=== PATIENT | female | born 1930 | race Caucasian/White ===

== ENCOUNTER 2018-05-30 00:59 | Inpatient (IN) | payer MEDICARE, OTHER ==
[2018-05-30 01:30] LABS: ADD MAN DIFF? NO
[2018-05-30 01:40] LABS: ABNORMAL IP MESSAGE 1; BASOPHIL # 0.1 10^3/ul (0.0-0.1); BASOPHILS % 0.3 % (0.0-2.0); EOSINOPHILS # 0.2 10^3/ul (0.0-0.5); EOSINOPHILS % 1.2 % (0.0-7.0); HEMATOCRIT 37.9 % (37.0-47.0); LYMPHOCYTES # 1.5 10^3/ul (0.8-2.9); LYMPHOCYTES % 9.8 % (15.0-51.0); MEAN CORPUSCULAR HEMOGLOBIN 28.4 pg (29.0-33.0); MEAN CORPUSCULAR HGB CONC 31.7 g/dl (32.0-37.0); MEAN CORPUSCULAR VOLUME 89.6 fl (82.0-101.0); MEAN PLATELET VOLUME 10.8 fl (7.4-10.4); MONOCYTE # 1.2 10^3/ul (0.3-0.9); MONOCYTES % 7.7 % (0.0-11.0); NEUTROPHIL # 11.7 10^3/ul (1.6-7.5); NEUTROPHILS % 78.9 % (39.0-77.0); PLATELET COUNT 52 10^3/UL (140-415); RED BLOOD COUNT 4.23 10^6/ul (4.20-5.40); RED CELL DISTRIBUTION WIDTH 21.8 % (11.5-14.5)
[2018-05-30 01:40] LABS: WHITE BLOOD COUNT 14.8 10^3/ul (4.8-10.8)
[2018-05-30 01:43] LABS: POSITIVE DIFF @See below
[2018-05-30 01:50] LABS: INR 1.74; PROTIME 20.7 Sec (11.9-14.9); PT RATIO 1.6
[2018-05-30 01:51] LABS: PARTIAL THROMBOPLASTIN TIME 35.3 Sec (23.0-35.0)
[2018-05-30 01:55] LABS: ALANINE AMINOTRANSFERASE 218 IU/L (13-69); ALBUMIN/GLOBULIN RATIO 0.85; ALKALINE PHOSPHATASE 354 IU/L (42-121); ANION GAP 10 (5-13); ASPARTATE AMINO TRANSFERASE 298 IU/L (15-46); BILIRUBIN,INDIRECT 1.8 mg/dl (0-1.1); BILIRUBIN,TOTAL 2.6 mg/dl (0.2-1.3); BLOOD UREA NITROGEN 26 mg/dl (7-20); CALCIUM 8.1 mg/dl (8.4-10.2); CARBON DIOXIDE 20 mmol/L (21-31); CHLORIDE 106 mmol/L (97-110); CREATININE 0.54 mg/dl (0.44-1.00); GLUCOSE 133 mg/dl (70-220); POTASSIUM 4.9 mmol/L (3.5-5.1); SODIUM 136 mmol/L (135-144); TOTAL PROTEIN 6.5 g/dl (6.1-8.1)
[2018-05-30 02:05] LABS: B-TYPE NATRIURETIC PEPTIDE 1070 PG/ML (0-450); TROPONIN-I 0.013 ng/ml (0.000-0.120)
[2018-05-30] MEDS ORDERED: NACL 0.9% 3 ML SYG IV (03:00)
[2018-05-30] MEDS ORDERED: BISACODYL (EC) 5 MG TAB PO (03:00)
[2018-05-30] MEDS ORDERED: ACETAMINOPHEN 325 MG TAB PO (03:00)
[2018-05-30] MEDS ORDERED: ONDANSETRON 4 MG INJ IV (03:00)
[2018-05-30] MEDS ORDERED: DOCUSATE SODIUM 100 MG CAP PO (03:00)
[2018-05-30] MEDS: LACTULOSE 30ML CUP PO ×3 (05:00→18:25)
[2018-05-30 06:04] LABS: ADD MAN DIFF? NO; HAAIG REFLEX REFLEX FILED
[2018-05-30 06:07] LABS: ABNORMAL IP MESSAGE 1; BASOPHIL # 0.1 10^3/ul (0.0-0.1); BASOPHILS % 0.3 % (0.0-2.0); EOSINOPHILS # 0.2 10^3/ul (0.0-0.5); EOSINOPHILS % 1.2 % (0.0-7.0); HEMATOCRIT 36.9 % (37.0-47.0); HEMOGLOBIN 11.7 g/dl (12.0-16.0); LYMPHOCYTES # 1.3 10^3/ul (0.8-2.9); LYMPHOCYTES % 9.1 % (15.0-51.0); MEAN CORPUSCULAR HEMOGLOBIN 28.3 pg (29.0-33.0); MEAN CORPUSCULAR HGB CONC 31.7 g/dl (32.0-37.0); MEAN CORPUSCULAR VOLUME 89.1 fl (82.0-101.0); MEAN PLATELET VOLUME 10.6 fl (7.4-10.4); MONOCYTE # 1.1 10^3/ul (0.3-0.9); MONOCYTES % 7.8 % (0.0-11.0); NEUTROPHIL # 11.4 10^3/ul (1.6-7.5); NEUTROPHILS % 79.6 % (39.0-77.0); PLATELET COUNT 46 10^3/UL (140-415); RED BLOOD COUNT 4.14 10^6/ul (4.20-5.40); RED CELL DISTRIBUTION WIDTH 21.7 % (11.5-14.5)
[2018-05-30 06:07] LABS: WHITE BLOOD COUNT 14.3 10^3/ul (4.8-10.8)
[2018-05-30 06:13] LABS: POSITIVE DIFF @See below
[2018-05-30 06:30] LABS: AMMONIA 76 umol/l (9-30)
[2018-05-30 06:32] LABS: INR 1.73; PROTIME 20.6 Sec (11.9-14.9); PT RATIO 1.6
[2018-05-30 06:33] LABS: LACTIC ACID 2.5 mmol/L (0.5-2.0)
[2018-05-30 06:33] LABS: PARTIAL THROMBOPLASTIN TIME 32.8 Sec (23.0-35.0)
[2018-05-30 06:35] LABS: ALANINE AMINOTRANSFERASE 213 IU/L (13-69); ALBUMIN 2.8 g/dl (3.3-4.9); ALBUMIN/GLOBULIN RATIO 0.71; ALKALINE PHOSPHATASE 337 IU/L (42-121); ANION GAP 5 (5-13); ASPARTATE AMINO TRANSFERASE 281 IU/L (15-46); BILIRUBIN,INDIRECT 2.1 mg/dl (0-1.1); BILIRUBIN,TOTAL 3.1 mg/dl (0.2-1.3); BLOOD UREA NITROGEN 29 mg/dl (7-20); CALCIUM 8.2 mg/dl (8.4-10.2); CARBON DIOXIDE 22 mmol/L (21-31); CHLORIDE 108 mmol/L (97-110); CREATININE 0.57 mg/dl (0.44-1.00); GLUCOSE 126 mg/dl (70-220); POTASSIUM 4.9 mmol/L (3.5-5.1); SODIUM 135 mmol/L (135-144); TOTAL PROTEIN 6.7 g/dl (6.1-8.1)
[2018-05-30 07:02] LABS: HEPATITIS B SURFACE ANTIGEN NEGATIVE (NEGATIVE)
[2018-05-30 07:20] LABS: HEPATITIS B CORE ANTIBODY NEGATIVE (NEGATIVE); HEPATITIS C VIRAL ANTIBODY NEGATIVE (NEGATIVE)
[2018-05-30] MEDS: LIDOCAINE 1% (MPF) 5 ML VIAL SC (08:30)
[2018-05-30] MEDS: FUROSEMIDE 40 MG INJ IV (08:55)
[2018-05-30] MEDS ORDERED: HEPARIN 5,000 UNIT/1 ML VIAL SC (09:00)
[2018-05-30] MEDS ORDERED: SOD CHLORIDE 0.9% IVPB (10:00)
[2018-05-30] MEDS ORDERED: CEFUROXIME IVPB (10:00)
[2018-05-30 11:22] LABS: LACTIC ACID 3.3 mmol/L (0.5-2.0)
[2018-05-30] MEDS: CEFTRIAXONE 2 GM/NS 50 ML IVPB (13:14)
[2018-05-30 14:02] LABS: ADD UMIC YES; UR ASCORBIC ACID NEGATIVE (NEGATIVE); UR BACTERIA FEW /HPF (NONE SEEN); UR BILIRUBIN (Dip) NEGATIVE (NEGATIVE); UR BLOOD (Dip) 1+ mg/dL (NEGATIVE); UR CLARITY SLIGHTLY CLOUDY (CLEAR); UR COLOR YELLOW (YELLOW); UR GLUCOSE (Dip) NEGATIVE (NEGATIVE); UR HYALINE CAST FEW /HPF (NONE SEEN); UR KETONES (Dip) NEGATIVE (NEGATIVE); UR LEUKOCYTE ESTERASE (Dip) NEGATIVE Leu/ul (NEGATIVE); UR MUCUS FEW /HPF (NONE SEEN); UR NITRITE (Dip) NEGATIVE (NEGATIVE); UR RBC 16 /HPF (0-5); UR SPECIFIC GRAVITY (Dip) 1.011 (1.003-1.030); UR SQUAMOUS EPITHELIAL CELL FEW /HPF (FEW); UR TOTAL PROTEIN (Dip) NEGATIVE (NEGATIVE); UR UROBILINOGEN (Dip) 1+ mg/dL (NEGATIVE); UR WBC 3 /HPF (0-5)
[2018-05-30] MEDS: SPIRONOLACTONE 50 MG TAB PO (15:24)
[2018-05-30] MEDS: NYSTATIN 30 GM POWDER BTL TOP (20:46)
[2018-05-30] MEDS: RIFAXIMIN 550 MG TAB PO (20:46)
[2018-05-30] MEDS: BALSAM PERU/CASTOR OIL 60 GM TUBE TOP (20:47)
[2018-05-31] MEDS: LACTULOSE 30ML CUP PO ×6 (00:47→23:51)
[2018-05-31] MEDS: SPIRONOLACTONE 50 MG TAB PO (05:30)
[2018-05-31 06:09] LABS: WHITE BLOOD COUNT 14.2 10^3/ul (4.8-10.8)
[2018-05-31 06:09] LABS: ABNORMAL IP MESSAGE 1; HEMATOCRIT 35.4 % (37.0-47.0); HEMOGLOBIN 11.6 g/dl (12.0-16.0); MEAN CORPUSCULAR HEMOGLOBIN 28.9 pg (29.0-33.0); MEAN CORPUSCULAR HGB CONC 32.8 g/dl (32.0-37.0); MEAN CORPUSCULAR VOLUME 88.3 fl (82.0-101.0); MEAN PLATELET VOLUME 11.3 fl (7.4-10.4); RED BLOOD COUNT 4.01 10^6/ul (4.20-5.40); RED CELL DISTRIBUTION WIDTH 22.4 % (11.5-14.5)
[2018-05-31 06:38] LABS: POSITIVE DIFF @See below
[2018-05-31 06:39] LABS: PLATELET COUNT 32 10^3/UL (140-415)
[2018-05-31 06:40] LABS: ADD MAN DIFF? YES
[2018-05-31 07:09] LABS: AMMONIA 75 umol/l (9-30)
[2018-05-31 07:19] LABS: ALANINE AMINOTRANSFERASE 220 IU/L (13-69); ALBUMIN 2.8 g/dl (3.3-4.9); ALBUMIN/GLOBULIN RATIO 0.71; ALKALINE PHOSPHATASE 324 IU/L (42-121); ANION GAP 9 (5-13); ASPARTATE AMINO TRANSFERASE 306 IU/L (15-46); BILIRUBIN,INDIRECT 1.8 mg/dl (0-1.1); BILIRUBIN,TOTAL 2.8 mg/dl (0.2-1.3); BLOOD UREA NITROGEN 31 mg/dl (7-20); CARBON DIOXIDE 22 mmol/L (21-31); CHLORIDE 107 mmol/L (97-110); CHOLESTEROL 160 mg/dl (100-200); CREATININE 0.64 mg/dl (0.44-1.00); GLUCOSE 135 mg/dl (70-220); HDL CHOLESTEROL 16 mg/dl (33-92); LDL CHOLESTEROL,CALCULATED 117 mg/dl; MAGNESIUM 2.3 mg/dl (1.7-2.5); POTASSIUM 4.8 mmol/L (3.5-5.1); SODIUM 138 mmol/L (135-144); TOTAL PROTEIN 6.7 g/dl (6.1-8.1); TRIGLYCERIDES 134 mg/dl (0-149)
[2018-05-31 08:14] LABS: B-TYPE NATRIURETIC PEPTIDE 1000 PG/ML (0-450)
[2018-05-31] MEDS: RIFAXIMIN 550 MG TAB PO ×2 (08:21→22:05)
[2018-05-31] MEDS: BALSAM PERU/CASTOR OIL 60 GM TUBE TOP ×2 (08:22→22:05)
[2018-05-31] MEDS: NYSTATIN 30 GM POWDER BTL TOP ×2 (08:22→22:05)
[2018-05-31] MEDS: FUROSEMIDE 40 MG INJ IV (08:23)
[2018-05-31] MEDS: CEFTRIAXONE 2 GM/NS 50 ML IVPB (08:54)
[2018-05-31 09:24] LABS: ANISOCYTOSIS 1+ (0-0); BAND NEUTROPHILS #M 1.5 10^3/ul (0.0-0.6); BAND NEUTROPHILS % (M) 11 % (0-4); BASOPHIL #M 0.1 10^3/ul (0.0-0.0); BASOPHILS % (M) 1 % (0-2); LYMPHOCYTES #M 0.7 10^3/ul (0.8-2.9); LYMPHOCYTES % (M) 5 % (15-51); MONOCYTE #M 0.4 10^3/ul (0.3-0.9); MONOCYTES % (M) 3 % (0-11); PLATELET ESTIMATE SIG DECREASED; POLYCHROMASIA 1+ (0-0); SEG NEUT #M 11.6 10^3/ul (1.6-7.5); SEGMENTED NEUTROPHILS (M) % 80 % (39-77); SMUDGE%M 9 % (0-0)
[2018-05-31 09:47] LABS: HEMOGLOBIN A1C 5.3 % (0-5.9)
[2018-06-01 05:51] LABS: ADD MAN DIFF? NO
[2018-06-01 06:05] LABS: ABNORMAL IP MESSAGE 1; BASOPHILS % 0.3 % (0.0-2.0); EOSINOPHILS # 0.3 10^3/ul (0.0-0.5); EOSINOPHILS % 2.3 % (0.0-7.0); HEMATOCRIT 36.4 % (37.0-47.0); HEMOGLOBIN 11.7 g/dl (12.0-16.0); LYMPHOCYTES # 1.4 10^3/ul (0.8-2.9); LYMPHOCYTES % 11.4 % (15.0-51.0); MEAN CORPUSCULAR HEMOGLOBIN 28.6 pg (29.0-33.0); MEAN CORPUSCULAR HGB CONC 32.1 g/dl (32.0-37.0); MEAN PLATELET VOLUME 10.9 fl (7.4-10.4); MONOCYTES % 8.1 % (0.0-11.0); NEUTROPHIL # 9.1 10^3/ul (1.6-7.5); NEUTROPHILS % 75.7 % (39.0-77.0); RED BLOOD COUNT 4.09 10^6/ul (4.20-5.40); RED CELL DISTRIBUTION WIDTH 22.5 % (11.5-14.5)
[2018-06-01 06:05] LABS: WHITE BLOOD COUNT 12.1 10^3/ul (4.8-10.8)
[2018-06-01 06:16] LABS: AMMONIA 25 umol/l (9-30)
[2018-06-01 06:19] LABS: PLATELET COUNT 39 10^3/UL (140-415); POSITIVE DIFF @See below
[2018-06-01 06:21] LABS: ALANINE AMINOTRANSFERASE 222 IU/L (13-69); ALBUMIN 2.8 g/dl (3.3-4.9); ALBUMIN/GLOBULIN RATIO 0.75; ALKALINE PHOSPHATASE 321 IU/L (42-121); ANION GAP 6 (5-13); ASPARTATE AMINO TRANSFERASE 296 IU/L (15-46); BILIRUBIN,INDIRECT 1.9 mg/dl (0-1.1); BLOOD UREA NITROGEN 33 mg/dl (7-20); CARBON DIOXIDE 24 mmol/L (21-31); CHLORIDE 107 mmol/L (97-110); CREATININE 0.62 mg/dl (0.44-1.00); GLUCOSE 130 mg/dl (70-220); POTASSIUM 4.2 mmol/L (3.5-5.1); SODIUM 137 mmol/L (135-144); TOTAL PROTEIN 6.5 g/dl (6.1-8.1)
[2018-06-01 06:28] LABS: MAGNESIUM 2.3 mg/dl (1.7-2.5)
[2018-06-01 06:28] LABS: PHOSPHORUS 2.9 mg/dl (2.5-4.9)
[2018-06-01] MEDS: RIFAXIMIN 550 MG TAB PO ×2 (08:51→20:34)
[2018-06-01] MEDS: LACTULOSE 30ML CUP PO ×4 (08:52→20:32)
[2018-06-01] MEDS: BALSAM PERU/CASTOR OIL 60 GM TUBE TOP ×2 (08:52→20:37)
[2018-06-01] MEDS: FUROSEMIDE 40 MG INJ IV (08:52)
[2018-06-01] MEDS: SPIRONOLACTONE 50 MG TAB PO (08:52)
[2018-06-01] MEDS: NYSTATIN 30 GM POWDER BTL TOP ×2 (08:52→20:37)
[2018-06-01] MEDS: CEFTRIAXONE 2 GM/NS 50 ML IVPB (09:06)
[2018-06-02] MEDS: SPIRONOLACTONE 50 MG TAB PO (05:11)
[2018-06-02 06:12] LABS: ADD MAN DIFF? NO
[2018-06-02 06:29] LABS: ABNORMAL IP MESSAGE 1; BASOPHIL # 0.1 10^3/ul (0.0-0.1); BASOPHILS % 0.4 % (0.0-2.0); EOSINOPHILS # 0.3 10^3/ul (0.0-0.5); EOSINOPHILS % 2.9 % (0.0-7.0); HEMATOCRIT 35.4 % (37.0-47.0); HEMOGLOBIN 11.6 g/dl (12.0-16.0); LYMPHOCYTES # 1.4 10^3/ul (0.8-2.9); LYMPHOCYTES % 12.7 % (15.0-51.0); MEAN CORPUSCULAR HEMOGLOBIN 29.4 pg (29.0-33.0); MEAN CORPUSCULAR HGB CONC 32.8 g/dl (32.0-37.0); MEAN CORPUSCULAR VOLUME 89.6 fl (82.0-101.0); MEAN PLATELET VOLUME 10.8 fl (7.4-10.4); MONOCYTE # 0.9 10^3/ul (0.3-0.9); NEUTROPHIL # 8.3 10^3/ul (1.6-7.5); NEUTROPHILS % 73.6 % (39.0-77.0); RED BLOOD COUNT 3.95 10^6/ul (4.20-5.40); RED CELL DISTRIBUTION WIDTH 22.6 % (11.5-14.5)
[2018-06-02 06:29] LABS: WHITE BLOOD COUNT 11.3 10^3/ul (4.8-10.8)
[2018-06-02 06:48] LABS: AMMONIA 23 umol/l (9-30)
[2018-06-02 06:48] LABS: POSITIVE DIFF @See below
[2018-06-02 06:49] LABS: PLATELET COUNT 34 10^3/UL (140-415)
[2018-06-02 06:56] LABS: ALANINE AMINOTRANSFERASE 206 IU/L (13-69); ALBUMIN 2.7 g/dl (3.3-4.9); ALBUMIN/GLOBULIN RATIO 0.71; ALKALINE PHOSPHATASE 313 IU/L (42-121); ANION GAP 8 (5-13); ASPARTATE AMINO TRANSFERASE 285 IU/L (15-46); BILIRUBIN,INDIRECT 2.1 mg/dl (0-1.1); BILIRUBIN,TOTAL 3.5 mg/dl (0.2-1.3); BLOOD UREA NITROGEN 33 mg/dl (7-20); CALCIUM 7.9 mg/dl (8.4-10.2); CARBON DIOXIDE 23 mmol/L (21-31); CHLORIDE 104 mmol/L (97-110); CREATININE 0.55 mg/dl (0.44-1.00); GLUCOSE 121 mg/dl (70-220); MAGNESIUM 2.2 mg/dl (1.7-2.5); POTASSIUM 4.2 mmol/L (3.5-5.1); SODIUM 135 mmol/L (135-144); TOTAL PROTEIN 6.5 g/dl (6.1-8.1)
[2018-06-02 06:58] LABS: B-TYPE NATRIURETIC PEPTIDE 854 PG/ML (0-450)
[2018-06-02] MEDS: BALSAM PERU/CASTOR OIL 60 GM TUBE TOP ×2 (09:00→21:02)
[2018-06-02] MEDS: RIFAXIMIN 550 MG TAB PO ×2 (09:05→21:01)
[2018-06-02] MEDS: FUROSEMIDE 40 MG INJ IV (09:06)
[2018-06-02] MEDS: CEFTRIAXONE 2 GM/NS 50 ML IVPB (09:07)
[2018-06-02] MEDS: NYSTATIN 30 GM POWDER BTL TOP ×2 (10:52→21:02)
[2018-06-02] MEDS: LACTULOSE 30ML CUP PO ×2 (10:57→21:01)
[2018-06-03] MEDS: SPIRONOLACTONE 50 MG TAB PO (05:32)
[2018-06-03] MEDS: ALTEPLASE (CATHFLO) 2 MG INJ CATHETER (06:04)
[2018-06-03 08:22] LABS: ADD MAN DIFF? NO
[2018-06-03 08:28] LABS: ABNORMAL IP MESSAGE 1; BASOPHILS % 0.3 % (0.0-2.0); EOSINOPHILS # 0.3 10^3/ul (0.0-0.5); EOSINOPHILS % 2.7 % (0.0-7.0); HEMATOCRIT 36.5 % (37.0-47.0); HEMOGLOBIN 11.7 g/dl (12.0-16.0); LYMPHOCYTES # 1.6 10^3/ul (0.8-2.9); LYMPHOCYTES % 12.6 % (15.0-51.0); MEAN CORPUSCULAR HEMOGLOBIN 28.6 pg (29.0-33.0); MEAN CORPUSCULAR HGB CONC 32.1 g/dl (32.0-37.0); MEAN CORPUSCULAR VOLUME 89.2 fl (82.0-101.0); MONOCYTE # 1.1 10^3/ul (0.3-0.9); MONOCYTES % 8.6 % (0.0-11.0); NEUTROPHIL # 9.1 10^3/ul (1.6-7.5); NEUTROPHILS % 72.8 % (39.0-77.0); PLATELET COUNT 43 10^3/UL (140-415); RED BLOOD COUNT 4.09 10^6/ul (4.20-5.40); RED CELL DISTRIBUTION WIDTH 22.6 % (11.5-14.5)
[2018-06-03 08:28] LABS: WHITE BLOOD COUNT 12.6 10^3/ul (4.8-10.8)
[2018-06-03] MEDS: LACTULOSE 30ML CUP PO ×2 (09:09→20:18)
[2018-06-03] MEDS: RIFAXIMIN 550 MG TAB PO ×2 (09:09→20:18)
[2018-06-03] MEDS: FUROSEMIDE 40 MG INJ IV (09:10)
[2018-06-03] MEDS: NYSTATIN 30 GM POWDER BTL TOP ×2 (09:11→20:18)
[2018-06-03 09:14] LABS: POSITIVE DIFF @See below
[2018-06-03 09:25] LABS: AMMONIA 44 umol/l (9-30)
[2018-06-03 09:25] LABS: ALANINE AMINOTRANSFERASE 197 IU/L (13-69); ALBUMIN 2.7 g/dl (3.3-4.9); ALBUMIN/GLOBULIN RATIO 0.69; ALKALINE PHOSPHATASE 319 IU/L (42-121); ANION GAP 8 (5-13); ASPARTATE AMINO TRANSFERASE 292 IU/L (15-46); BILIRUBIN,INDIRECT 2.2 mg/dl (0-1.1); BILIRUBIN,TOTAL 4.1 mg/dl (0.2-1.3); BLOOD UREA NITROGEN 32 mg/dl (7-20); CARBON DIOXIDE 22 mmol/L (21-31); CHLORIDE 102 mmol/L (97-110); CREATININE 0.53 mg/dl (0.44-1.00); GLUCOSE 111 mg/dl (70-220); POTASSIUM 4.3 mmol/L (3.5-5.1); SODIUM 132 mmol/L (135-144); TOTAL PROTEIN 6.6 g/dl (6.1-8.1)
[2018-06-03 09:26] LABS: PHOSPHORUS 2.8 mg/dl (2.5-4.9)
[2018-06-03 09:26] LABS: MAGNESIUM 2.2 mg/dl (1.7-2.5)
[2018-06-03] MEDS: BALSAM PERU/CASTOR OIL 60 GM TUBE TOP ×2 (09:47→20:18)
[2018-06-03] MEDS: CEFTRIAXONE 2 GM/NS 50 ML IVPB (09:47)
[2018-06-03] MEDS ORDERED: ALBUTEROL 0.083% (NEB) 2.5 MG/3 ML AMP HHN (12:30)
[2018-06-03] MEDS: ALBUTEROL 0.083% (NEB) 2.5 MG/3 ML AMP HHN ×2 (13:51→19:30)
[2018-06-03] MEDS: CEFEPIME 1GM/50 ML (PMX) 50 ML IVPB (20:18)
[2018-06-04] MEDS: ALBUTEROL 0.083% (NEB) 2.5 MG/3 ML AMP HHN ×4 (01:35→19:44)
[2018-06-04 05:09] LABS: ADD MAN DIFF? NO
[2018-06-04 05:12] LABS: WHITE BLOOD COUNT 12.9 10^3/ul (4.8-10.8)
[2018-06-04 05:12] LABS: ABNORMAL IP MESSAGE 1; BASOPHIL # 0.1 10^3/ul (0.0-0.1); BASOPHILS % 0.6 % (0.0-2.0); EOSINOPHILS # 0.3 10^3/ul (0.0-0.5); EOSINOPHILS % 2.1 % (0.0-7.0); HEMATOCRIT 36.1 % (37.0-47.0); HEMOGLOBIN 11.7 g/dl (12.0-16.0); LYMPHOCYTES # 1.4 10^3/ul (0.8-2.9); LYMPHOCYTES % 10.8 % (15.0-51.0); MEAN CORPUSCULAR HGB CONC 32.4 g/dl (32.0-37.0); MEAN CORPUSCULAR VOLUME 89.6 fl (82.0-101.0); MEAN PLATELET VOLUME 10.8 fl (7.4-10.4); MONOCYTE # 1.1 10^3/ul (0.3-0.9); MONOCYTES % 8.1 % (0.0-11.0); NEUTROPHIL # 9.6 10^3/ul (1.6-7.5); NEUTROPHILS % 74.7 % (39.0-77.0); NUCLEATED RED BLOOD CELLS% 0.2 /100WBC (0.0-0.0); RED BLOOD COUNT 4.03 10^6/ul (4.20-5.40); RED CELL DISTRIBUTION WIDTH 22.5 % (11.5-14.5)
[2018-06-04 05:13] LABS: PLATELET COUNT 42 10^3/UL (140-415); POSITIVE DIFF @See below
[2018-06-04 05:29] LABS: AMMONIA 69 umol/l (9-30)
[2018-06-04 05:41] LABS: PHOSPHORUS 2.9 mg/dl (2.5-4.9)
[2018-06-04 05:41] LABS: MAGNESIUM 2.2 mg/dl (1.7-2.5)
[2018-06-04] MEDS: SPIRONOLACTONE 50 MG TAB PO (05:53)
[2018-06-04 06:40] LABS: ALANINE AMINOTRANSFERASE 180 IU/L (13-69); ALBUMIN 2.8 g/dl (3.3-4.9); ALKALINE PHOSPHATASE 301 IU/L (42-121); ANION GAP 11 (5-13); ASPARTATE AMINO TRANSFERASE 265 IU/L (15-46); BILIRUBIN,TOTAL 3.9 mg/dl (0.2-1.3); BLOOD UREA NITROGEN 33 mg/dl (7-20); CALCIUM 7.9 mg/dl (8.4-10.2); CARBON DIOXIDE 21 mmol/L (21-31); CHLORIDE 100 mmol/L (97-110); CREATININE 0.53 mg/dl (0.44-1.00); GLUCOSE 131 mg/dl (70-220); POTASSIUM 4.5 mmol/L (3.5-5.1); SODIUM 132 mmol/L (135-144); TOTAL PROTEIN 6.3 g/dl (6.1-8.1)
[2018-06-04] MEDS: FUROSEMIDE 40 MG INJ IV (08:46)
[2018-06-04] MEDS: CEFEPIME 1GM/50 ML (PMX) 50 ML IVPB ×2 (08:47→20:31)
[2018-06-04] MEDS: RIFAXIMIN 550 MG TAB PO ×2 (08:47→20:31)
[2018-06-04] MEDS: NYSTATIN 30 GM POWDER BTL TOP ×2 (08:47→20:32)
[2018-06-04] MEDS: LACTULOSE 30ML CUP PO ×3 (08:47→20:31)
[2018-06-04] MEDS: BALSAM PERU/CASTOR OIL 60 GM TUBE TOP ×2 (08:47→20:33)
[2018-06-05] MEDS: ALBUTEROL 0.083% (NEB) 2.5 MG/3 ML AMP HHN ×6 (01:32→20:55)
[2018-06-05 06:27] LABS: ADD MAN DIFF? NO
[2018-06-05 06:32] LABS: ABNORMAL IP MESSAGE 1; BASOPHIL # 0.1 10^3/ul (0.0-0.1); BASOPHILS % 0.6 % (0.0-2.0); EOSINOPHILS # 0.4 10^3/ul (0.0-0.5); EOSINOPHILS % 2.6 % (0.0-7.0); HEMATOCRIT 36.2 % (37.0-47.0); HEMOGLOBIN 11.8 g/dl (12.0-16.0); LYMPHOCYTES # 1.5 10^3/ul (0.8-2.9); LYMPHOCYTES % 10.1 % (15.0-51.0); MEAN CORPUSCULAR HEMOGLOBIN 28.9 pg (29.0-33.0); MEAN CORPUSCULAR HGB CONC 32.6 g/dl (32.0-37.0); MEAN CORPUSCULAR VOLUME 88.7 fl (82.0-101.0); MEAN PLATELET VOLUME 10.4 fl (7.4-10.4); MONOCYTE # 1.4 10^3/ul (0.3-0.9); MONOCYTES % 9.2 % (0.0-11.0); NEUTROPHIL # 10.7 10^3/ul (1.6-7.5); NUCLEATED RED BLOOD CELLS% 0.1 /100WBC (0.0-0.0); RED BLOOD COUNT 4.08 10^6/ul (4.20-5.40); RED CELL DISTRIBUTION WIDTH 22.9 % (11.5-14.5)
[2018-06-05 06:32] LABS: WHITE BLOOD COUNT 14.6 10^3/ul (4.8-10.8)
[2018-06-05 06:37] LABS: POSITIVE DIFF @See below
[2018-06-05] MEDS: SPIRONOLACTONE 50 MG TAB PO (06:37)
[2018-06-05 06:38] LABS: PLATELET COUNT 51 10^3/UL (140-415)
[2018-06-05 06:51] LABS: AMMONIA 57 umol/l (9-30)
[2018-06-05 07:08] LABS: ALANINE AMINOTRANSFERASE 176 IU/L (13-69); ALBUMIN 2.7 g/dl (3.3-4.9); ALBUMIN/GLOBULIN RATIO 0.75; ALKALINE PHOSPHATASE 304 IU/L (42-121); ANION GAP 11 (5-13); ASPARTATE AMINO TRANSFERASE 257 IU/L (15-46); BILIRUBIN,INDIRECT 2.6 mg/dl (0-1.1); BILIRUBIN,TOTAL 4.7 mg/dl (0.2-1.3); BLOOD UREA NITROGEN 33 mg/dl (7-20); CALCIUM 8.1 mg/dl (8.4-10.2); CARBON DIOXIDE 21 mmol/L (21-31); CHLORIDE 100 mmol/L (97-110); CREATININE 0.56 mg/dl (0.44-1.00); GLUCOSE 138 mg/dl (70-220); POTASSIUM 4.4 mmol/L (3.5-5.1); SODIUM 132 mmol/L (135-144); TOTAL PROTEIN 6.3 g/dl (6.1-8.1)
[2018-06-05 07:15] LABS: MAGNESIUM 2.2 mg/dl (1.7-2.5)
[2018-06-05 07:15] LABS: PHOSPHORUS 2.6 mg/dl (2.5-4.9)
[2018-06-05] MEDS: NYSTATIN 30 GM POWDER BTL TOP ×2 (08:15→20:44)
[2018-06-05] MEDS: RIFAXIMIN 550 MG TAB PO ×2 (08:15→20:45)
[2018-06-05] MEDS: FUROSEMIDE 40 MG INJ IV (08:15)
[2018-06-05] MEDS: LACTULOSE 30ML CUP PO ×2 (08:15→12:55)
[2018-06-05] MEDS: BALSAM PERU/CASTOR OIL 60 GM TUBE TOP ×2 (08:16→20:45)
[2018-06-05] MEDS: CEFEPIME 1GM/50 ML (PMX) 50 ML IVPB ×2 (08:40→20:45)
[2018-06-05] MEDS: GUAIFENESIN/DM 5ML CUP PO (18:05)
[2018-06-05] MEDS ORDERED: LACTULOSE 30ML CUP PO (20:00)
[2018-06-06] MEDS: ALBUTEROL 0.083% (NEB) 2.5 MG/3 ML AMP HHN ×4 (00:50→23:40)
[2018-06-06] MEDS: SPIRONOLACTONE 50 MG TAB PO (05:43)
[2018-06-06 06:17] LABS: ABNORMAL IP MESSAGE 1; HEMATOCRIT 36.2 % (37.0-47.0); HEMOGLOBIN 11.9 g/dl (12.0-16.0); MEAN CORPUSCULAR HEMOGLOBIN 29.5 pg (29.0-33.0); MEAN CORPUSCULAR HGB CONC 32.9 g/dl (32.0-37.0); MEAN CORPUSCULAR VOLUME 89.8 fl (82.0-101.0); MEAN PLATELET VOLUME 10.2 fl (7.4-10.4); NUCLEATED RED BLOOD CELLS% 0.1 /100WBC (0.0-0.0); PLATELET COUNT 59 10^3/UL (140-415); RED BLOOD COUNT 4.03 10^6/ul (4.20-5.40); RED CELL DISTRIBUTION WIDTH 22.7 % (11.5-14.5)
[2018-06-06 06:17] LABS: WHITE BLOOD COUNT 14.9 10^3/ul (4.8-10.8)
[2018-06-06 06:29] LABS: POSITIVE DIFF @See below
[2018-06-06 06:30] LABS: ADD MAN DIFF? YES
[2018-06-06 06:34] LABS: INR 2.38; PROTIME 26.6 Sec (11.9-14.9); PT RATIO 2.1
[2018-06-06 06:41] LABS: B-TYPE NATRIURETIC PEPTIDE 1410 PG/ML (0-450)
[2018-06-06 07:25] LABS: ALANINE AMINOTRANSFERASE 166 IU/L (13-69); ALBUMIN 2.7 g/dl (3.3-4.9); ALBUMIN/GLOBULIN RATIO 0.75; ALKALINE PHOSPHATASE 294 IU/L (42-121); ANION GAP 10 (5-13); ASPARTATE AMINO TRANSFERASE 220 IU/L (15-46); BILIRUBIN,INDIRECT 2.9 mg/dl (0-1.1); BILIRUBIN,TOTAL 5.5 mg/dl (0.2-1.3); BLOOD UREA NITROGEN 38 mg/dl (7-20); CALCIUM 8.2 mg/dl (8.4-10.2); CARBON DIOXIDE 22 mmol/L (21-31); CHLORIDE 99 mmol/L (97-110); CREATININE 0.56 mg/dl (0.44-1.00); GLUCOSE 138 mg/dl (70-220); MAGNESIUM 2.4 mg/dl (1.7-2.5); PHOSPHORUS 2.8 mg/dl (2.5-4.9); POTASSIUM 4.8 mmol/L (3.5-5.1); SODIUM 131 mmol/L (135-144); TOTAL PROTEIN 6.3 g/dl (6.1-8.1)
[2018-06-06 07:53] LABS: ANISOCYTOSIS 2+ (0-0); BAND NEUTROPHILS #M 1.1 10^3/ul (0.0-0.6); BAND NEUTROPHILS % (M) 8 % (0-4); BURR CELLS 2+ (0-0); EOSINOPHILS % (M) 2 % (0-7); LYMPHOCYTES #M 0.1 10^3/ul (0.8-2.9); LYMPHOCYTES % (M) 1 % (15-51); METAMYELOCYTES #M 0.2 10^3/ul (0.0-0.0); METAMYELOCYTES %M 2 % (0-0); MONOCYTE #M 0.1 10^3/ul (0.3-0.9); MONOCYTES % (M) 1 % (0-11); MYELOCYTES #M 0.1 10^3/ul (0.0-0.0); MYELOCYTES % (M) 1 % (0-0); PLATELET ESTIMATE DECREASED; POIKILOCYTOSIS 2+ (0-0); POLYCHROMASIA 1+ (0-0); PROMYELOCYTES #M 0.2 10^3/ul (0-0); PROMYELOCYTES % (M) 2 % (0-0); SEG NEUT #M 12.5 10^3/ul (1.6-7.5); SEGMENTED NEUTROPHILS (M) % 83 % (39-77); SMUDGE%M 19 % (0-0); SPHEROCYTES 1+ (0-0); TARGET CELLS 1+ (0-0)
[2018-06-06] MEDS: RIFAXIMIN 550 MG TAB PO ×2 (08:08→20:42)
[2018-06-06] MEDS: FUROSEMIDE 40 MG INJ IV (08:09)
[2018-06-06] MEDS: NYSTATIN 30 GM POWDER BTL TOP ×2 (08:31→20:43)
[2018-06-06] MEDS: BALSAM PERU/CASTOR OIL 60 GM TUBE TOP ×2 (08:31→20:43)
[2018-06-06] MEDS: CEFEPIME 1GM/50 ML (PMX) 50 ML IVPB ×2 (08:31→20:43)
[2018-06-06] MEDS: FAMOTIDINE 20 MG TAB PO (08:31)
[2018-06-06] MEDS: MEGESTROL (40 MG/ML) 10ML CUP PO (20:42)
[2018-06-06] MEDS: LACTULOSE 30ML CUP PO ×2 (20:42→23:54)
[2018-06-06] MEDS: FOLIC ACID 1 MG TAB PO (20:46)
[2018-06-06] MEDS: PHYTONADIONE (1 MG/ML PO SYG) PO (23:54)
[2018-06-07] MEDS: LACTULOSE 30ML CUP PO ×4 (06:19→23:52)
[2018-06-07] MEDS: SPIRONOLACTONE 50 MG TAB PO (06:37)
[2018-06-07 07:08] LABS: WHITE BLOOD COUNT 15.8 10^3/ul (4.8-10.8)
[2018-06-07 07:08] LABS: ABNORMAL IP MESSAGE 1; HEMATOCRIT 35.7 % (37.0-47.0); HEMOGLOBIN 11.9 g/dl (12.0-16.0); MEAN CORPUSCULAR HEMOGLOBIN 29.5 pg (29.0-33.0); MEAN CORPUSCULAR HGB CONC 33.3 g/dl (32.0-37.0); MEAN CORPUSCULAR VOLUME 88.4 fl (82.0-101.0); MEAN PLATELET VOLUME 10.9 fl (7.4-10.4); NUCLEATED RED BLOOD CELLS% 0.1 /100WBC (0.0-0.0); PLATELET COUNT 58 10^3/UL (140-415); RED BLOOD COUNT 4.04 10^6/ul (4.20-5.40); RED CELL DISTRIBUTION WIDTH 23.5 % (11.5-14.5)
[2018-06-07 07:09] LABS: POSITIVE DIFF @See below
[2018-06-07 07:10] LABS: ADD MAN DIFF? YES
[2018-06-07 07:29] LABS: AMMONIA 45 umol/l (9-30)
[2018-06-07 07:37] LABS: PHOSPHORUS 3.2 mg/dl (2.5-4.9)
[2018-06-07] MEDS: FAMOTIDINE 20 MG TAB PO (08:44)
[2018-06-07] MEDS: MEGESTROL (40 MG/ML) 10ML CUP PO ×2 (08:44→20:04)
[2018-06-07] MEDS: RIFAXIMIN 550 MG TAB PO ×2 (08:44→20:05)
[2018-06-07] MEDS: FOLIC ACID 1 MG TAB PO (08:44)
[2018-06-07] MEDS: BALSAM PERU/CASTOR OIL 60 GM TUBE TOP ×2 (08:45→20:05)
[2018-06-07] MEDS: NYSTATIN 30 GM POWDER BTL TOP ×2 (08:45→20:05)
[2018-06-07] MEDS: CEFEPIME 1GM/50 ML (PMX) 50 ML IVPB ×2 (08:45→20:04)
[2018-06-07] MEDS: FUROSEMIDE 40 MG INJ IV (08:45)
[2018-06-07] MEDS: ALBUTEROL 0.083% (NEB) 2.5 MG/3 ML AMP HHN ×3 (08:57→23:36)
[2018-06-07 09:00] LABS: ANISOCYTOSIS 2+ (0-0); BAND NEUTROPHILS #M 0.1 10^3/ul (0.0-0.6); BAND NEUTROPHILS % (M) 1 % (0-4); EOSINOPHILS % (M) 1 % (0-7); ERYTHROBLAST% (NRBC) (M) 1 % (0-0); GIANT THROMBO% (M) 1 % (0-0); LYMPHOCYTES #M 0.4 10^3/ul (0.8-2.9); LYMPHOCYTES % (M) 3 % (15-51); MICROCYTOSIS 1+ (0-0); MONOCYTE #M 0.6 10^3/ul (0.3-0.9); MONOCYTES % (M) 4 % (0-11); MYELOCYTES #M 0.4 10^3/ul (0.0-0.0); MYELOCYTES % (M) 3 % (0-0); PLATELET ESTIMATE DECREASED; POLYCHROMASIA 1+ (0-0); REACTIVE LYMPHOCYTES #M 0.3 10^3/ul (0.0-0.0); REACTIVE LYMPHOCYTES% (M) 2 % (0-0); SEG NEUT #M 13.6 10^3/ul (1.6-7.5); SEGMENTED NEUTROPHILS (M) % 86 % (39-77); SMUDGE%M 11 % (0-0)
[2018-06-07] MEDS: BARIUM SULF 2% 450 ML BTL (BERRY SMOOTHIE) PO (16:01)
[2018-06-07] MEDS: IOHEXOL 300MG/ML 150 ML BTL (19:25)
[2018-06-07] MEDS: SOD CHLORIDE 0.9% 100 ML (19:26)
[2018-06-08] MEDS: ALPRAZOLAM 0.5 MG TAB PO (01:09)
[2018-06-08] MEDS: LACTULOSE 30ML CUP PO ×5 (06:24→18:00)
[2018-06-08] MEDS: SPIRONOLACTONE 50 MG TAB PO (06:25)
[2018-06-08 08:14] LABS: ABNORMAL IP MESSAGE 1; HEMATOCRIT 37.5 % (37.0-47.0); HEMOGLOBIN 12.3 g/dl (12.0-16.0); MEAN CORPUSCULAR HEMOGLOBIN 29.4 pg (29.0-33.0); MEAN CORPUSCULAR HGB CONC 32.8 g/dl (32.0-37.0); MEAN CORPUSCULAR VOLUME 89.5 fl (82.0-101.0); NUCLEATED RED BLOOD CELLS% 0.2 /100WBC (0.0-0.0); PLATELET COUNT 60 10^3/UL (140-415); RED BLOOD COUNT 4.19 10^6/ul (4.20-5.40); RED CELL DISTRIBUTION WIDTH 23.3 % (11.5-14.5)
[2018-06-08 08:18] LABS: ADD MAN DIFF? YES; POSITIVE DIFF @See below
[2018-06-08] MEDS: ALBUTEROL 0.083% (NEB) 2.5 MG/3 ML AMP HHN ×2 (08:22→15:37)
[2018-06-08] MEDS: CEFEPIME 1GM/50 ML (PMX) 50 ML IVPB (08:34)
[2018-06-08] MEDS: FUROSEMIDE 40 MG INJ IV (08:35)
[2018-06-08] MEDS: BALSAM PERU/CASTOR OIL 60 GM TUBE TOP (08:35)
[2018-06-08] MEDS: MEGESTROL (40 MG/ML) 10ML CUP PO (08:35)
[2018-06-08] MEDS: NYSTATIN 30 GM POWDER BTL TOP (08:35)
[2018-06-08] MEDS: FAMOTIDINE 20 MG TAB PO (08:35)
[2018-06-08] MEDS: FOLIC ACID 1 MG TAB PO (08:35)
[2018-06-08] MEDS: RIFAXIMIN 550 MG TAB PO (08:35)
[2018-06-08 09:34] LABS: ANISOCYTOSIS 2+ (0-0); BAND NEUTROPHILS % (M) 6 % (0-4); LYMPHOCYTES #M 0.3 10^3/ul (0.8-2.9); LYMPHOCYTES % (M) 2 % (15-51); METAMYELOCYTES #M 0.1 10^3/ul (0.0-0.0); METAMYELOCYTES %M 1 % (0-0); MONOCYTE #M 0.5 10^3/ul (0.3-0.9); MONOCYTES % (M) 3 % (0-11); MYELOCYTES #M 0.5 10^3/ul (0.0-0.0); MYELOCYTES % (M) 3 % (0-0); PLATELET ESTIMATE SIG DECREASED; POIKILOCYTOSIS 1+ (0-0); POLYCHROMASIA 1+ (0-0); SEG NEUT #M 14.6 10^3/ul (1.6-7.5); SEGMENTED NEUTROPHILS (M) % 85 % (39-77); SMUDGE%M 26 % (0-0)
[2018-06-08] MEDS ORDERED: oxyCODONE 5 MG TAB PO (18:30)
[2018-06-09 18:46] LABS: ANA SCREEN POSITIVE (NEGATIVE)
[2018-06-09 20:17] LABS: ANA PATTERN NUCLEOLAR
[2018-06-10 09:06] LABS: MITOCHONDRIAL TB NEGATIVE (NEGATIVE); SMOOTH MUSCLE AB SCREEN NEGATIVE (NEGATIVE)
== END 2018-06-09 00:01 | disposition expired | DRG 871 ==
LOC: PP2 06-02 17:37 → TEL 06-08 03:52 → E/R 00:59 → 6WM 02:38
PROC: 5A12012 Performance of Cardiac Output, Single, Manual (ICD-10-PCS; principal; 2018-06-08)
PROC: 0BH17EZ Insertion of Endotracheal Airway into Trachea, Via Natural or Artificial Opening (ICD-10-PCS; 2018-06-08)
DX: A41.9 Sepsis, unspecified organism (principal); I50.33 Acute on chronic diastolic (congestive) heart failure; K72.00 Acute and subacute hepatic failure without coma; J18.9 Pneumonia, unspecified organism; K65.2 Spontaneous bacterial peritonitis; I26.99 Other pulmonary embolism without acute cor pulmonale; J96.00 Acute respiratory failure, unspecified whether with hypoxia or hypercapnia; I44.2 Atrioventricular block, complete; J90 Pleural effusion, not elsewhere classified; I82.423 Acute embolism and thrombosis of iliac vein, bilateral; E72.20 Disorder of urea cycle metabolism, unspecified; R18.8 Other ascites; D68.59 Other primary thrombophilia; C22.0 Liver cell carcinoma; N30.00 Acute cystitis without hematuria; R64 Cachexia; D69.59 Other secondary thrombocytopenia; I11.0 Hypertensive heart disease with heart failure; I27.20 Pulmonary hypertension, unspecified; I25.10 Atherosclerotic heart disease of native coronary artery without angina pectoris; I49.01 Ventricular fibrillation; J44.9 Chronic obstructive pulmonary disease, unspecified; K74.60 Unspecified cirrhosis of liver; K80.20 Calculus of gallbladder without cholecystitis without obstruction; R74.0 Nonspecific elevation of levels of transaminase and lactic acid dehydrogenase [LDH]; R62.7 Adult failure to thrive; Z86.74 Personal history of sudden cardiac arrest; Z95.0 Presence of cardiac pacemaker; Z79.899 Other long term (current) drug therapy; Z68.23 Body mass index [BMI] 23.0-23.9, adult
CPT/HCPCS: 36415; 71045; 74177; 76705; 80053; 80061; 81001; 82140; 82962; 83036; 83605; 83735; 83880; 84100; 84443; 84484; 85025; 85610; 85730; 86038; 86255; 86704; 86709; 86803; 87040; 87081; 87086; 87340; 92950; 93005; 93306; 94640; 94664; 97110; 97161; 97530; 99285-25